=== PATIENT | female | born 1965 | race Caucasian/White ===

== ENCOUNTER 2019-09-28 06:50 | Emergency (ER) | payer BC ==
[2019-09-28] MEDS ORDERED: PANTOPRAZOLE 40 MG INJ ONE (07:41)
--- NOTE | 2019-09-28 07:53 | RAD REPORT ---
EXAM DESCRIPTION: RAD - Chest Single View - 09/28/2019 7:47 am CLINICAL HISTORY: CHEST PAIN COMPARISON: CHEST PA AND LAT 2 VIEW dated 02/18/2012 TECHNIQUE: AP portable chest image was obtained 09/28/2019 7:47 am . FINDINGS: Lungs are clear. Heart and vasculature are normal. No measurable pleural effusion and no p neumothorax. No acute bony abnormality seen. No acute aortic findings suspected. No suspicious change from comparison study. IMPRESSION: No acute cardiopulmonary process.
[2019-09-28] MEDS ORDERED: LIDOCAINE VISCOUS 2% SOLN 15 ML UDC ONE (08:03)
[2019-09-28] MEDS ORDERED: MAGNE/ALUM HYDROXD 30 ML UCUP ONE (08:03)
[2019-09-28 08:35] LABS: Absolute Lymphocytes (CBC) 2.2 K/uL (0.7-4.9); Basophils % 0.9 % (0-1.3); Lymphocytes % 27.5 % (15.3-44.8); MPV 8.6 fL (7.6-11.3); RBC Red Blood Cell Count 4.94 M/uL (3.86-4.86)
[2019-09-28 08:36] LABS: Protime INR 0.99
[2019-09-28 08:49] LABS: ALT/SGPT 35 U/L (12-78); AST/SGOT 25 U/L (15-37); Albumin 3.7 g/dL (3.4-5.0); Alkaline Phosphatase 72 U/L (45-117); BUN Blood Urea Nitrogen 20 mg/dL (7-18); Bicarbonate 25 mmol/L (21-32); Bilirubin Direct 0.2 mg/dL (0-0.2); Bilirubin Total 0.5 mg/dL (0.2-1.0); Glucose Level 93 mg/dL (74-106); Magnesium 2.3 mg/dL (1.8-2.4); NT PRO-BNP 21 pg/mL (<125); Protein, Total 7.8 g/dL (6.4-8.2); Sodium Level 137 mmol/L (136-145); Troponin (Emerg Dept Use Only) < 0.02 ng/mL (0.0-0.045)
--- NOTE | 2019-09-28 09:03 | EDPHYS ---
Physician Documentation [facility] Name: Elicia Stewart Age: 54 yrs Sex: Female : 1965 Arrival Date: 09/28/2019 Time: 06:51 Bed 13 Private MD: ED Physician Stanislaw Locke HPI: 09/28 07:44 This 54 yrs old Female presents to ER via Ambulatory with complaints of Chest jr8 Pain. 07:44 The patient or guardian reports chest pain that is located primarily in the substernal jr8 area. Onset: gradually, 2 week(s) ago. The pain radiates to back. Associated signs and symptoms: Pertinent positives: shortness of breath. The chest pain is described as burning, a pressure. Duration: The patient or guardian reports multiple episodes, that are intermittent, Mostly occurring at night when sleeping . Modifying factors: The symptoms are alleviated by nothing. the symptoms are aggravated by nothing. Severity of pain: At its worst the pain was moderate in the emergency department the pain is unchanged. The patient has not experienced similar symptoms in the past. The patient has not recently seen a physician. Takes Advil daily for pain . 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 - Coronavirus screen:: The patient has NOT traveled to [place] in the past 14 days. Proceed with normal triage process as indicated. The patient has NOT had contact with known/suspected case of Coronavirus? Proceed with normal triage procedures. - Social history:: Smoking status: Patient denies any tobacco usage or history of. - Ebola Screening: : No symptoms or risks identified at this time. ROS: 07:44 Eyes: Negative for injury, pain, redness, and discharge, ENT: Negative for injury, jr8 pain, and discharge, Neck: Negative for injury, pain, and swelling, Abdomen/GI: Negative for abdominal pain, nausea, vomiting, diarrhea, and constipation, Back: Negative for injury and pain, MS/Extremity: Negative for injury and deformity, Skin: Negative for injury, rash, and discoloration, Neuro: Negative for headache, weakness, numbness, tingling, and seizure. 07:44 Cardiovascular: Positive for chest pain, Negative for edema, orthopnea, palpitations, paroxysmal nocturnal dyspnea. 07:44 Respiratory: Positive for shortness of breath, Negative for dyspnea on exertion, hemoptysis, orthopnea, pleurisy, sputum production, wheezing. Exam: 07:44 Eyes: Pupils equal round and reactive to light, extra-ocular motions intact. Lids and jr8 lashes normal. Conjunctiva and sclera are non-icteric and not injected. Cornea within normal limits. Periorbital areas with no swelling, redness, or edema. ENT: Nares patent. No nasal discharge, no septal abnormalities noted. Tympanic membranes are normal and external auditory canals are clear. Oropharynx with no redness, swelling, or masses, exudates, or evidence of obstruction, uvula midline. Mucous membranes moist. Neck: Trachea midline, no thyromegaly or masses palpated, and no cervical lymphadenopathy. Supple, full range of motion without nuchal rigidity, or vertebral point tenderness. No Meningismus. Chest/axilla: Normal chest wall appearance and motion. Nontender with no deformity. No lesions are appreciated. Cardiovascular: Regular rate and rhythm with a normal S1 and S2. No gallops, murmurs, or rubs. Normal PMI, no JVD. No pulse deficits. Respiratory: Lungs have equal breath sounds bilaterally, clear to auscultation and percussion. No rales, rhonchi or wheezes noted. No increased work of breathing, no retractions or nasal flaring. Abdomen/GI: Soft, non-tender, with normal bowel sounds. No distension or tympany. No guarding or rebound. No evidence of tenderness throughout. Back: No spinal tenderness. No costovertebral tenderness. Full range of motion. Skin: Warm, dry with normal turgor. Normal color with no rashes, no lesions, and no evidence of cellulitis. MS/ Extremity: Pulses equal, no cyanosis. Neurovascular intact. Full, normal range of motion. Neuro: Awake and alert, GCS 15, oriented to person, place, time, and situation. Cranial nerves II-XII grossly intact. Motor strength 5/5 in all extremities. Sensory grossly intact. Cerebellar exam normal. Normal gait. 07:55 ECG was reviewed by the Attending Physician. jr8 Vital Signs: 07:07 BP 125 / 73; Pulse 72; Resp 16; Temp 98; Pulse Ox 97% ; Weight 104.33 kg; Height 5 ft. bp 4 in. (162.56 cm); 08:23 BP 114 / 77; Pulse 75; Resp 14; Pulse Ox 96% ; bp 09:18 BP 111 / 74; Pulse 74; Resp 13; Temp 97.5; Pulse Ox 97% ; bp 07:07 Body Mass Index 39.48 (104.33 kg, 162.56 cm) bp MDM: 07:22 Patient medically screened. jr8 08:51 Differential diagnosis: abnormal EKG, acute myocardial infarction, acute pericarditis, jr8 anxiety, chest wall pain, cholecystitis, Cholelithiasis costochondritis, esophagitis, gastritis, gastroesophageal reflux disease (GERD), herpes zoster, pancreatitis, peptic ulcer disease, pleurisy, pneumonia, pulmonary embolus, stable angina, thoracic aortic disection, unstable angina. Data reviewed: vital signs, nurses notes, lab test result(s), EKG, radiologic studies, plain films. Data interpreted: Pulse oximetry: on room air is 96 %. Interpretation: normal. Counseling: I had a detailed discussion with the patient and/or guardian regarding: the historical points, exam findings, and any diagnostic results supporting the discharge/admit diagnosis, lab results, radiology results, the need for outpatient follow up, Response to treatment: the patient's symptoms have markedly improved after treatment. ED course: Discussed with patient that if she needs to take the Advil daily that we need to add PPI to help to ensure no erosive changes occur. Should f/u with GI. 09/28 07:21 Order name: Basic Metabolic Panel; Complete Time: 08:51 09/28 07:21 Order name: CBC with Diff; Complete Time: 08:38 09/28 07:21 Order name: LFT's; Complete Time: 08:51 09/28 07:21 Order name: Magnesium; Complete Time: 08:51 09/28 07:21 Order name: NT PRO-BNP; Complete Time: 08:51 09/28 07:21 Order name: PT-INR; Complete Time: 08:50 09/28 07:21 Order name: Troponin (emerg Dept Use Only); Complete Time: 08:51 09/28 07:21 Order name: XRAY Chest (1 view); Complete Time: 07:55 09/28 07:21 Order name: EKG; Complete Time: 07:23 09/28 07:21 Order name: Cardiac monitoring; Complete Time: 07:28 09/28 07:21 Order name: EKG - Nurse/Tech; Complete Time: 08:18 09/28 07:21 Order name: IV Saline Lock; Complete Time: 07:47 09/28 07:21 Order name: Labs collected and sent; Complete Time: 08:17 09/28 07:21 Order name: O2 Per Protocol; Complete Time: 07:28 09/28 07:21 Order name: O2 Sat Monitoring; Complete Time: 07:28 EC:55 Rate is 72 beats/min. Rhythm is regular, Normal Sinus Rhythm. QRS [place] is Normal. [place] jr8 interval is normal at 168 msec. QRS interval is normal at 86 msec. QT interval is normal at 438 msec. No Q waves. T waves are Normal. No ST changes noted. Clinical impression: Normal ECG and No evidence of ischemia. Interpreted by me. Reviewed by me. Administered Medications: 08:10 Drug: ProTONIX 40 mg Route: IVP; Site: right forearm; bp 09:21 Follow up: Response: Pain is decreased bp 08:10 Drug: GI Cocktail without - (Maalox Suspension 30 ml, Lidocaine Liquid 2 % 15 bp ml) Route: PO; 09:22 Follow up: Response: No adverse reaction bp Disposition: 20:47 Co-signature as Attending Physician, Stanislaw Locke MD. rn Disposition: 09/28/19 08:59 Discharged to Home. Impression: Esophagitis, Gastritis, unspecified, Chest pain, unspecified. - Condition is Stable. - Discharge Instructions: Nonspecific Chest Pain, Esophagitis, Gastritis, Adult. - Prescriptions for Nexium 40 mg Oral capsule,delayed release(DR/EC) - take 1 capsule by ORAL route once daily; 30 capsule. - Medication Reconciliation Form, Thank You Letter, Antibiotic Education, Prescription Opioid Use form. - Follow up: Everette Bates MD; When: 1 week; Reason: Recheck today's complaints, Continuance of care, Re-evaluation by your physician. - Problem is new. - Symptoms have improved. Signatures: Dispatcher [employer] EDStanislaw Amador MD MD rn Yrn Putnam PA PA jr8 Chetan Martínez, RN RN bp Corrections: (The following items were deleted from the chart) 09:23 08:59 09/28/2019 08:59 Discharged to Home. Impression: Esophagitis; Gastritis, bp unspecified; Chest pain, unspecified. Condition is Stable. Forms are Medication Reconciliation Form, Thank You Letter, Antibiotic Education, Prescription Opioid Use. Follow up: Everette Bates; When: 1 week; Reason: Recheck today's complaints, Continuance of care, Re-evaluation by your physician. Problem is new. Symptoms have improved. jr8
--- NOTE | 2019-09-28 09:03 | ER ---
Nurse's Notes [facility] Name: Elicia Stewart Age: 54 yrs Sex: Female : 1965 Arrival Date: 09/28/2019 Time: 06:51 Bed 13 Private MD: Diagnosis: Esophagitis;Gastritis, unspecified;Chest pain, unspecified Presentation: 09/28 07:05 Presenting complaint: Patient states: 2 WEEKS "BURNING" SUBSTERNAL CHEST PAIN OCCURRING bp AT NIGHT. Transition of care: patient was not received from another setting of care. Onset of symptoms is unknown. Risk Assessment: Do you want to hurt yourself or someone else? Patient reports no desire to harm self or others. Initial Sepsis Screen: Does the patient meet any 2 criteria? No. Patient's initial sepsis screen is negative. Does the patient have a suspected source of infection? No. Patient's initial sepsis screen is negative. Care prior to arrival: None. 07:05 Method Of Arrival: Ambulatory bp 07:05 Acuity: SHAYNE 3 bp Triage Assessment: 07:07 General: Appears in no apparent distress. comfortable, obese, Behavior is cooperative, bp appropriate for age, anxious. Pain: Denies pain. EENT: No deficits noted. Neuro: No deficits noted. Cardiovascular: Rhythm is sinus rhythm. Respiratory: No deficits noted. GI: No signs and/or symptoms were reported involving the gastrointestinal system. : No signs and/or symptoms were reported regarding the genitourinary system. Derm: No deficits noted. Musculoskeletal: No deficits noted. 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 - Coronavirus screen:: The patient has NOT traveled to [place] in the past 14 days. Proceed with normal triage process as indicated. The patient has NOT had contact with known/suspected case of Coronavirus? Proceed with normal triage procedures. - Social history:: Smoking status: Patient denies any tobacco usage or history of. - Ebola Screening: : No symptoms or risks identified at this time. Screenin:18 Abuse screen: Denies threats or abuse. Denies injuries from another. Nutritional bp screening: No deficits noted. Tuberculosis screening: No symptoms or risk factors identified. Fall Risk None identified. Assessment: 07:07 General: SEE TRIAGE NOTE. Pain: Denies pain. Pain radiates to back Pain began bp INTERMITTENT. 08:23 Reassessment: ALL CURRENT ORDERS COMPLETE, VS STABLE ON MONITOR. NO ACUTE S/S AT THIS bp TIME. 09:18 Reassessment: PT D/C HOME AMBULATORY WITH FAMILY, DX WITH GASTRITIS. bp Vital Signs: 07:07 BP 125 / 73; Pulse 72; Resp 16; Temp 98; Pulse Ox 97% ; Weight 104.33 kg; Height 5 ft. bp 4 in. (162.56 cm); 08:23 BP 114 / 77; Pulse 75; Resp 14; Pulse Ox 96% ; bp 09:18 BP 111 / 74; Pulse 74; Resp 13; Temp 97.5; Pulse Ox 97% ; bp 07:07 Body Mass Index 39.48 (104.33 kg, 162.56 cm) bp ED Course: 06:51 Patient arrived in ED. ds1 07:05 Chetan Martínez, RN is Primary Nurse. bp 07:06 Triage completed. bp 07:07 Arm band placed on. bp 07:14 Patient has correct armband on for positive identification. Placed in gown. Bed in low mh5 position. Call light in reach. Side rails up X 1. Adult w/ patient. Warm blanket given. engine monitor on. Pulse ox on. NIBP on. 07:21 Yrn Putnam PA is PHCP. jr8 07:21 Stanislaw Locke MD is Attending Physician. jr8 07:47 XRAY Chest (1 view) In Process Unspecified. EDMS 08:10 Inserted saline lock: 22 gauge in right forearm, using aseptic technique. Blood bp collected. 08:59 Everette Bates MD is Referral Physician. jr8 09:18 No provider procedures requiring assistance completed. IV discontinued, intact, bp bleeding controlled, No redness/swelling at site. Pressure dressing applied. Patient maintains SpO2 saturation greater than 95% on room air. Administered Medications: 08:10 Drug: ProTONIX 40 mg Route: IVP; Site: right forearm; bp 09:21 Follow up: Response: Pain is decreased bp 08:10 Drug: GI Cocktail without - (Maalox Suspension 30 ml, Lidocaine Liquid 2 % 15 bp ml) Route: PO; 09:22 Follow up: Response: No adverse reaction bp Outcome: 08:59 Discharge ordered by MD. dow 09:18 Discharged to home ambulatory, with family. bp 09:18 Condition: stable 09:18 Discharge instructions given to patient, Instructed on discharge instructions, follow up and referral plans. medication usage, Demonstrated understanding of instructions, follow-up care, medications, Prescriptions given X 1. 09:23 Patient left the ED. bp Signatures: Dispatcher [employer] EDMS [place] dsYrn Reece PA PA jr8 Martinez, [facility] Chetan Matrínez, RN RN bp
[2019-09-28 09:46] VITALS: BP 111/74; TEMP 97.5; O2SAT 97
--- NOTE | 2019-09-28 11:26 | EKG ---
Test Date: 2019-09-28 Test Time: 07:49:01 Wire Winding Machine Tender: FLORECITA MEASUREMENT RESULTS: Intervals: Rate: 72 SC: 168 QRSD: 86 QT: 400 QTc: 438 Smith: P: 38 SC: 168 QRS: 50 T: 54 INTERPRETIVE STATEMENTS: Normal sinus rhythm Normal ECG Compared to ECG 11/08/2006 12:12:41 No significant changes Electronically Signed On 09-28-19 11:25:42 CRACKING MACHINE OPERATOR by Greg Steele
== END 2019-09-28 09:23 | disposition home or self-care (01) ==
LOC: ER 06:50
DX: K20.9 Esophagitis, unspecified (principal); K29.70 Gastritis, unspecified, without bleeding
CPT/HCPCS: 93005; 85025; 80048; 36415; 83735; 85610; 80076; 84484; 83880; 71045; 96374; 99285; C9113